=== PATIENT | female | born 1985 | race Two or more races ===

== ENCOUNTER 2019-03-20 08:36 | Emergency (ER) | payer BC ==
[~2019-03-20] VITALS: Ht 157.5 cm; Wt 54.4 kg
[2019-03-20 08:43] VITALS: BP 144/80
[2019-03-20] MEDS ORDERED: IBUPROFEN 600 MG TABLET PO ONE ×2 (09:26→09:30)
[2019-03-20] MEDS ORDERED: CYCLOBENZAPRINE 10 MG TABLET ONE (09:26)
[2019-03-20] MEDS ORDERED: CYCLOBENZAPRINE 10 MG TABLET PO ONE (09:30)
== END 2019-03-20 09:29 | disposition home or self-care (01) ==
LOC: ER 08:36
DX: S39.012A Strain of muscle, fascia and tendon of lower back, initial encounter (principal); X50.0XXA Overexertion from strenuous movement or load, initial encounter; X50.9XXA Other and unspecified overexertion or strenuous movements or postures, initial encounter; Y93.B9 Activity, other involving muscle strengthening exercises; Y92.39 Other specified sports and athletic area as the place of occurrence of the external cause; Y99.8 Other external cause status